=== PATIENT | female | born 1945 | race Caucasian/White ===

== ENCOUNTER 2019-05-02 08:51 | Emergency (ER) | payer MEDICARE, MEDICAID ==
[~2019-05-02] VITALS: Ht 175.3 cm; Wt 79.4 kg
[2019-05-02] MEDS ORDERED: FLUMAZENIL 0.1 MG/ML INJ 10ML MDV IV ONE (09:30)
[2019-05-02 10:08] LABS: Platelet Count (auto) 116 10^3/uL (140-450); White Blood Cell 9.3 10^3/uL (4.4-10.8)
[2019-05-02 10:09] LABS: Hemoglobin 12.2 g/dL (12.2-16.2); Mean Corpuscular Hemoglobin 35.4 pg (28.0-32.0); Mean Corpuscular Volume 104.3 fL (80.0-100.0); Red Blood Cells 3.46 10^6/uL (4.0-5.20); Red Cell Distribution Width 16.8 % (11.8-14.3)
[2019-05-02 10:18] LABS: Basophils % (manual) 0 (0.0-2.0); Blast Cells 0; Metamyelocytes % 0; Myelocytes % 0; Promyelocytes % 0; Reactive Lymphocytes 0
[2019-05-02 10:26] LABS: Acetaminophen 2.6 ug/mL (10-30); Albumin 3.3 g/dL (3.4-5.0); Anion Gap 7 (5-15); Blood Urea Nitrogen 16 mg/dL (7-18); Calcium 8.5 mg/dL (8.5-10.1); Carbon Dioxide 23 mmol/L (21-32); Chloride 106 mmol/L (98-107); Glucose 106 mg/dL (74-106); Potassium 4.8 mmol/L (3.5-5.1); Salicylate < 1.7 mg/dL (2.8-20.0); Sodium 136 mmol/L (136-145)
[2019-05-02 10:28] LABS: Blood Alcohol < 3.0 mg/dL (0-5); GFR African American 64 mL/min; GFR Non-African American 53 mL/min
[2019-05-02 10:30] LABS: Alanine Aminotransferase 29 U/L (13-56); Alkaline Phosphatase 124 U/L (45-117); Aspartate Aminotransferase 123 U/L (15-37); Bilirubin, Total 0.7 mg/dL (0.2-1.0); Total Protein 7.2 g/dL (6.4-8.2)
[2019-05-02 10:51] LABS: Band Neutrophils % (manual) 2; Eosinophils % (manual) 2 (0-7); Lymphocytes % (manual) 19 (10.0-50.0); Monocytes % (manual) 10 (0-12)
[2019-05-02 11:47] LABS: Urine Bacteria NONE SEEN /hpf (None Seen); Urine Blood Negative /uL (Negative); Urine Specific Gravity 1.007 (1.001-1.035); Urine WBC 1 /hpf (0 - 5)
[2019-05-02 11:58] LABS: Alcohol, Urine < 3.0 mg/dL (0-5); Amphetamine Screen, Urine NEGATIVE (NEGATIVE); Barbiturate Scree,Urine NEGATIVE (NEGATIVE); Benzodiazephine Screen, Urine POSITIVE (NEGATIVE); Cannabinoid Screen, Urine NEGATIVE (NEGATIVE); Cocaine Screen, Urine NEGATIVE (NEGATIVE); Opiate Scree,Urine POSITIVE (NEGATIVE); Phencyclidine Screen, Urine NEGATIVE (NEGATIVE)
[2019-05-02] MEDS ORDERED: LORazepam 2MG/ML-1ML VIAL IV ONE (19:45)
[2019-05-02 22:14] LABS: Albumin 3.2 g/dL (3.4-5.0); Calcium 8.8 mg/dL (8.5-10.1); Potassium 4.1 mmol/L (3.5-5.1)
[2019-05-02 22:19] LABS: Total Protein 6.8 g/dL (6.4-8.2)
[2019-05-03] MEDS ORDERED: LORazepam 2MG/ML-1ML VIAL IV ONE (02:00)
[2019-05-03] MEDS ORDERED: LORazepam 2MG/ML-1ML VIAL IV PRN (03:48)
[2019-05-03] MEDS: HYDROcodone-ACET 10/325MG TAB PO SCH ×2 (09:54→18:00)
[2019-05-03] MEDS ORDERED: ONDANSETRON ODT 4 MG TAB PO SCH (14:00)
[2019-05-03 17:00] VITALS: BP 153/83
== END 2019-05-03 18:00 | disposition home or self-care (01) ==
LOC: EDBD 08:51 → ER 08:51
DX: T42.4X2A Poisoning by benzodiazepines, intentional self-harm, initial encounter (principal); F43.21 Adjustment disorder with depressed mood; F41.9 Anxiety disorder, unspecified; I10 Essential (primary) hypertension; Z90.49 Acquired absence of other specified parts of digestive tract; Y92.9 Unspecified place or not applicable
CPT/HCPCS: 36415; 80053; 80307; 80320; 80329; 81001; 85007; 85027; 96374; 96375; 96376; 99284; J2060; Q0162

== ENCOUNTER 2019-05-28 12:24 | Emergency (ER) | payer MEDICARE, MEDICAID ==
[~2019-05-28] VITALS: Ht 175.3 cm; Wt 61.2 kg
[2019-05-28 13:21] LABS: Hematocrit 26.4 % (36.0-46.0); Mean Corpuscular Hemoglobin 35.3 pg (28.0-32.0); Mean Corpuscular Volume 103.7 fL (80.0-100.0); Platelet Count (auto) 55 10^3/uL (140-450); Red Blood Cells 2.55 10^6/uL (4.0-5.20); Red Cell Distribution Width 18.7 % (11.8-14.3); White Blood Cell 10.4 10^3/uL (4.4-10.8)
[2019-05-28 13:31] LABS: Basophils % (manual) 0 (0.0-2.0); Blast Cells 0; Metamyelocytes % 0; Myelocytes % 0; Promyelocytes % 0; Reactive Lymphocytes 0
[2019-05-28 13:38] LABS: Albumin 3.2 g/dL (3.4-5.0); Calcium 8.2 mg/dL (8.5-10.1); Potassium 4.6 mmol/L (3.5-5.1)
[2019-05-28 13:41] LABS: BUN/Creatinine Ratio 13.5; Bilirubin, Total 1.6 mg/dL (0.2-1.0); Total Protein 6.6 g/dL (6.4-8.2)
[2019-05-28 14:26] LABS: Band Neutrophils % (manual) 4; Eosinophils % (manual) 2 (0-7); Lymphocytes % (manual) 38 (10.0-50.0); Monocytes % (manual) 4 (0-12)
[2019-05-28] MEDS ORDERED: HYDROmorphone HCL 2 MG/ML VL IV ONE (14:30)
[2019-05-28] MEDS ORDERED: PROMETHAZINE HCL 25 MG/ML 1ML IV ONE (14:30)
[2019-05-28 17:00] VITALS: BP 118/52
== END 2019-05-28 17:23 | disposition home or self-care (01) ==
LOC: EDUNIT# 12:24 → ER 12:24
DX: F43.21 Adjustment disorder with depressed mood (principal); D64.9 Anemia, unspecified; R11.2 Nausea with vomiting, unspecified; I10 Essential (primary) hypertension; E44.1 Mild protein-calorie malnutrition; Z68.1 Body mass index [BMI] 19.9 or less, adult; Z90.49 Acquired absence of other specified parts of digestive tract; Z90.710 Acquired absence of both cervix and uterus; Z88.6 Allergy status to analgesic agent
CPT/HCPCS: 36415; 80053; 85007; 85027; 93005; 96374; 96375; 99284; J1170; J2550